=== PATIENT | female | born 1975 | race African-American/Black ===

== ENCOUNTER 2016-11-16 19:50 | Inpatient (IN) | payer OTHER ==
[2016-11-16 21:46] VITALS: BMI 37.5
--- NOTE | 2016-11-16 23:58 | HP ---
Admission ROS [facility] - [facility] Chief Complaint: I WANT TO GO TO REHAB Allergies/Adverse Reactions: Allergies Allergy/AdvReac Type Severity Reaction Status Date / Time No Known Allergies Allergy Verified 11/16/16 23:53 History of Present Illness: 41 YEARS OLD FEMALE WITH LONG HISTORY OF COCAINE NICOTINE DEPENDENCE ASHTM ECZEMA IS ADMITTED TO REHAB Exam Limitations: No Limitations - Ebola screening Have you traveled outside of the country in the last 21 days: No Have you had contact with anyone from an Ebola affected area: No Have you been sick,other than usual withdrawal symptoms: No Do you have a fever: No - Review of Systems Constitutional: Weight Stable EENT: reports: Dental Problems (A HOLE LEFT UPPER X 1 YEAR) Respiratory: reports: No Symptoms reported Cardiac: reports: No Symptoms Reported GI: reports: No Symptoms Reported : reports: No Symptoms Reported Musculoskeletal: reports: No Symptoms Reported Integumentary: reports: No Symptoms Reported Neuro: reports: No Symptoms reported Endocrine: reports: No Symptoms Reported Hematology: reports: No Symptoms Reported Psychiatric: reports: Judgement Intact, Mood/Affect Appropiate, Orientated x3 Other Systems: Reviewed and Negative Patient History - Patient Medical History Hx Anemia: No Hx Asthma: Yes Hx Chronic Obstructive Pulmonary Disease (COPD): No Hx Cancer: No Hx Cardiac Disorders: No Hx Congestive Heart Failure: No Hx Hypertension: No Hx Hypercholesterolemia: No Hx Pacemaker: No HX Cerebrovascular Accident: No Hx Seizures: No Hx Dementia: No Hx Diabetes: No Hx Gastrointestinal Disorders: No Hx Liver Disease: No Hx Genitourinary Disorders: No Hx Sexually Transmitted Disorders: No Hx Renal Disease (ESRD): No Hx Thyroid Disease: No Hx Human Immunodeficiency Virus (HIV): No Hx Hepatitis C: No Hx Depression: No Hx Suicide Attempt: No Hx Bipolar Disorder: No Hx Schizophrenia: No - Patient Surgical History Past Surgical History: Yes Hx Section: Yes (2017) Anesthesia Reaction: No - PPD History Previous Implant?: Yes Documented Results: Negative w/o proof Implanted On Prior R Admission?: No PPD to be Administered?: Yes - Reproductive History Patient is a Female of Child Bearing Age (11 -55 yrs old): Yes Last Menstrual Period: 11/13/16 Patient : No - Smoking Cessation Smoking history: Current every day smoker Have you smoked in the past 12 months: Yes Aproximately how many cigarettes per day: 7 Cigars Per Day: 0 Hx Chewing Tobacco Use: No Initiated information on smoking cessation: Yes 'Breaking Loose' booklet given: 11/16/16 - Substance & Tx. History Hx Alcohol Use: No Hx Substance Use: Yes Substance Use Type: Cocaine Hx Substance Use Treatment: Yes - Substances Abused Cocaine Route: Smoking Frequency: Daily Amount used: 100$ Age of first use: 15 Date of Last Use: 11/16/16 Family Disease History - Family Disease History Family Disease History: CA: Mother (LIVER), Brother (LUNG ) Admission Physical Exam [facility] - Vital Signs Vital Signs: Vital Signs - 24 hr 11/16/16 21:29 Temperature 98.3 F Pulse Rate 91 H Respiratory 20 Rate Blood Pressure 125/103 - Physical General Appearance: Yes: No Apparent Distress, Nourished, Appropriately Dressed HEENTM: Yes: Hearing grossly Normal, Normal ENT Inspection, Normocephalic, Normal Voice Respiratory: Yes: Chest Non-Tender, Lungs Clear, Normal Breath Sounds, No Respiratory Distress, No Accessory Muscle Use Neck: Yes: Supple, Trachea in good position Breast: Yes: Breasts Symetrical Cardiology: Yes: Regular Rhythm, S1, S2, Tachycardia Abdominal: Yes: Non Tender, Soft Genitourinary: Yes: Within Normal Limits Back: Yes: Normal Inspection Musculoskeletal: Yes: full range of Motion, Gait Steady Extremities: Yes: Normal Range of Motion, Non-Tender Neurological: Yes: Alert, Motor Strength 5/5, Normal Mood/Affect, Normal Response Integumentary: Yes: Warm Lymphatic: Yes: Within Normal Limits - Diagnostic (1) Cocaine dependence, uncomplicated Current Visit: Yes Status: Acute (2) Nicotine dependence Current Visit: Yes Status: Acute Qualifiers: Nicotine product type: cigarettes Substance use status: in withdrawal Qualified Code(s): F17.213 - Nicotine dependence, cigarettes, with withdrawal (3) Asthma Current Visit: Yes Status: Acute Qualifiers: Asthma severity: mild persistent Asthma complication type: with status asthmaticus Qualified Code(s): J45.32 - Mild persistent asthma with status asthmaticus (4) Eczema Current Visit: Yes Status: Acute Qualifiers: Eczema type: flexural Qualified Code(s): L20.82 - Flexural eczema Comment: HYDROCORTISON Cleared for Admission [facility] - Detox or Rehab [facility] Level of Care: Observation Bed Claeared for Rehab Admission: Yes BHS Breath Alcohol Content Breath Alcohol Content: 0 Urine Pregancy Test - Result Urine Test Results: Negative- NO Line Present Urine Drug Screen - Results Drug Screen Negative: No Urine Drug Screen Results: AMINA-Cocaine
[2016-11-16] MEDS ORDERED: guaiFENesin/D-METHORPHAN HB 10 ML UNIT-DOSE CUPS PO PRN (23:59)
[2016-11-16] MEDS ORDERED: MAG HYDROX/AL HYDROX/SIMETH 30 ML UNIT-DOSE CUP PO PRN (23:59)
[2016-11-16] MEDS ORDERED: MAGNESIUM CITRATE 300 ML BOTTLE PO PRN (23:59)
[2016-11-16] MEDS ORDERED: P-EPHED 60MG/TRIPROLIDI 2.5MG TABLET PO PRN (23:59)
[2016-11-16] MEDS ORDERED: IBUPROFEN 400 MG TABLET (FP) PO PRN (23:59)
[2016-11-16] MEDS ORDERED: MENTHOL/PHENOL 1 EACH UD MM PRN (23:59)
[2016-11-16] MEDS ORDERED: ACETAMINOPHEN 325 MG TABLET (FP) PO PRN (23:59)
[2016-11-16] MEDS ORDERED: MAGNESIUM HYDROX 2400MG/30ML ORAL SUSPENSION 30 ML CUP PO PRN (23:59)
[2016-11-16] MEDS ORDERED: hydrOXYzine PAMOATE 50 MG CAPSULE (FP) PO PRN (23:59)
[2016-11-17] MEDS ORDERED: HYDROCORTISONE 0.5% TOPICAL CREAM 30 GM TUBE TP PRN (00:02)
[2016-11-17] MEDS: ALBUTEROL SO4 6.7 GM HFA INHALER IH PRN (01:11)
[2016-11-17] MEDS: diphenhydrAMINE HCL 50 MG CAPSULE PO PRN (01:43)
[2016-11-17] MEDS: NICOTINE POLACRILEX 2 MG GUM BC PRN (10:16)
[2016-11-17] MEDS: NICOTINE 14 MG/24 HOURS TOPICAL PATCH TD SCH (10:16)
[2016-11-17] MEDS: PRENATAL VITAMINS W/ FOLIC ACID TABLET (FP) PO SCH (10:16)
[2016-11-17 10:40] LABS: MCH 26.7 pg (25.7-33.7); MCHC 31.9 g/dl (32.0-36.0); MEAN CELL VOLUME 83.5 fl (80-96); MEAN PLT VOLUME 8.3 fl (7.5-11.1); PLATELET COUNT 262 K/MM3 (134-434); RDW 15.2 % (11.6-15.6); WHITE BLOOD COUNT 5.7 K/mm3 (4.0-10.0)
[2016-11-17 10:54] LABS: ANION GAP 8 (8-16); CALCIUM 8.4 mg/dL (8.5-10.1); CO2 24 mmol/L (21-32); GLUCOSE,RANDOM 78 mg/dL (74-106)
[2016-11-17 10:56] LABS: CREATININE 0.9 mg/dL (0.55-1.02)
[2016-11-17 10:57] LABS: ALK PHOS 67 U/L (45-117); BILIRUBIN,TOTAL 0.4 mg/dL (0.2-1.0); SGOT/AST 13 U/L (15-37); SGPT/ALT 15 U/L (12-78); TOT PROT 6.2 g/dl (6.4-8.2)
[2016-11-17] MEDS: BUDESONIDE/FORMETEROL FUMARATE 80/4.5 mcg INHALER IH SCH ×2 (12:21→21:40)
[2016-11-17 13:38] LABS: URINE APPEARANCE SLCLOUDY; URINE BILIRUBIN NEGATIVE (NEGATIVE); URINE COLOR YELLOW; URINE GLUCOSE (UA) NEGATIVE (NEGATIVE); URINE KETONE NEGATIVE (NEGATIVE); URINE LEUK ESTERASE NEGATIVE (NEGATIVE); URINE NITRITE NEGATIVE (NEGATIVE); URINE PROTEIN NEGATIVE (NEGATIVE); URINE UROBILINOGEN NEGATIVE E.U./dl (0.2-1.0)
[2016-11-17 13:39] LABS: URINE BLOOD 3+ (NEGATIVE)
[2016-11-17 13:42] LABS: URINE MUCUS RARE; URINE RBC 190 /hpf (0-3); URINE WBC 1 /hpf (3-5)
[2016-11-17] MEDS: FLUTICASONE PROP 0.05% 16 GM NASAL SPRAY NS SCH (15:57)
--- NOTE | 2016-11-17 18:14 | EKG ---
Test Reason : Blood Pressure : / mmHG Vent. Rate : 072 BPM Atrial Rate : 072 BPM P-R Int : 164 ms QRS Dur : 068 ms QT Int : 378 ms P-R-T Axes : 039 013 017 degrees QTc Int : 413 ms NORMAL SINUS RHYTHM NORMAL ECG NO PREVIOUS ECGS AVAILABLE Confirmed by KM MORALES MD ([id number]) on 11/17/2016 6:14:18 PM Referred By: Confirmed By:KM MORALES MD
[2016-11-17] MEDS: THIAMINE HCL 100 MG TABLET (FP) PO SCH (21:40)
[2016-11-17] MEDS: LOPERAMIDE HCL 2 MG CAPSULE PO PRN (21:41)
[2016-11-18] MEDS: LOPERAMIDE HCL 2 MG CAPSULE PO PRN ×2 (06:44→21:12)
[2016-11-18] MEDS: ALBUTEROL SO4 6.7 GM HFA INHALER IH PRN (06:46)
[2016-11-18] MEDS ORDERED: PT OWN MED DRAWER 7, Y5N ONE ×3 (06:46→23:23)
[2016-11-18] MEDS: PRENATAL VITAMINS W/ FOLIC ACID TABLET (FP) PO SCH (10:01)
[2016-11-18] MEDS: FLUTICASONE PROP 0.05% 16 GM NASAL SPRAY NS SCH (10:01)
[2016-11-18] MEDS: BUDESONIDE/FORMETEROL FUMARATE 80/4.5 mcg INHALER IH SCH ×2 (10:01→21:13)
[2016-11-18] MEDS: NICOTINE 14 MG/24 HOURS TOPICAL PATCH TD SCH (10:02)
[2016-11-18] MEDS: NICOTINE POLACRILEX 2 MG GUM BC PRN (18:58)
[2016-11-18] MEDS: THIAMINE HCL 100 MG TABLET (FP) PO SCH (21:12)
[2016-11-18] MEDS: diphenhydrAMINE HCL 50 MG CAPSULE PO PRN (21:23)
[2016-11-19] MEDS: LOPERAMIDE HCL 2 MG CAPSULE PO PRN (06:17)
[2016-11-19] MEDS: PRENATAL VITAMINS W/ FOLIC ACID TABLET (FP) PO SCH (10:17)
[2016-11-19] MEDS: BUDESONIDE/FORMETEROL FUMARATE 80/4.5 mcg INHALER IH SCH ×2 (10:17→21:30)
[2016-11-19] MEDS: NICOTINE 14 MG/24 HOURS TOPICAL PATCH TD SCH (10:17)
[2016-11-19] MEDS: FLUTICASONE PROP 0.05% 16 GM NASAL SPRAY NS SCH (10:18)
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
[2016-11-19] MEDS: THIAMINE HCL 100 MG TABLET (FP) PO SCH (21:30)
[2016-11-19] MEDS: traZODone HCL 50 MG TABLET (FP) PO SCH (21:32)
[2016-11-19] MEDS ORDERED: LIDOCAINE VISCOUS 2% ORAL/TOP 20 ML UNIT-DOSE CUP MM PRN (21:45)
--- NOTE | 2016-11-19 21:45 | PN ---
S Progress Note Note: ASKED TO SEE PT FOR C/O TOOTH PAIN. PT STATES SHE HAS AN ABSCESS TO HER RUQ OF HER MOUTH/ GUMS. PAIN 10/10 X 3DAYS. DENIES FEVER, CHILL, SOB. FACE- SYMMETRICAL MOUTH- MMM, POOR DENTITION,RUQ- NO REDNESS OR SWELLING NOTED TO GUMS. C/O PAIN ON PALPATION A- DENTAL PAIN P- INCREASE MOTRIN TO 800MG PO Q6H PRN DENTAL CONSULT MOUTH CARE DISCUSSED LIDOCAINE VISCOUS ORDERED
[2016-11-19] MEDS: IBUPROFEN 400 MG TABLET (FP) PO PRN (22:46)
[2016-11-20] MEDS ORDERED: PT OWN MED DRAWER 7, Y5N ONE ×3 (08:39→20:17)
[2016-11-20] MEDS: LOPERAMIDE HCL 2 MG CAPSULE PO PRN (08:50)
[2016-11-20] MEDS: IBUPROFEN 400 MG TABLET (FP) PO PRN (08:51)
[2016-11-20] MEDS: BUDESONIDE/FORMETEROL FUMARATE 80/4.5 mcg INHALER IH SCH ×2 (10:04→21:36)
[2016-11-20] MEDS: FLUTICASONE PROP 0.05% 16 GM NASAL SPRAY NS SCH (10:04)
[2016-11-20] MEDS: NICOTINE 14 MG/24 HOURS TOPICAL PATCH TD SCH (10:05)
[2016-11-20] MEDS: PRENATAL VITAMINS W/ FOLIC ACID TABLET (FP) PO SCH (10:05)
[2016-11-20] MEDS ORDERED: LIDOCAINE VISCOUS 2% ORAL/TOP 20 ML UNIT-DOSE CUP MM PRN (14:09)
[2016-11-20] MEDS ORDERED: COLLOIDAL OATMEAL 1 BAR EACH TP PRN (14:09)
[2016-11-20] MEDS: AMOXICILLIN 500 MG CAPSULE (FP) PO SCH ×2 (14:41→21:36)
--- NOTE | 2016-11-20 15:36 | PN ---
[facility] Progress Note Note: PT. C/O SEVERE TOOTHACHE,SHE HAS A HOLE IN THE LAST UPPER MOLAR AND SWOLLEN GUM SURROUNDING TOOTH. Vital Signs - 8 hr 11/20/16 12:30 Temperature 97.7 F Pulse Rate 89 Respiratory 18 Rate Blood Pressure 130/86 Laboratory Tests 11/17/16 11/17/16 11/17/16 08:00 08:00 08:00 WBC 5.7 RBC 4.52 Hgb 12.1 Hct 37.8 MCV 83.5 MCHC 31.9 L RDW 15.2 Plt Count 262 MPV 8.3 Sodium 143 Potassium 4.1 Chloride 111 H Carbon Dioxide 24 Anion Gap 8 BUN 12 Creatinine 0.9 Creat Clearance w eGFR > 60 Random Glucose 78 Calcium 8.4 L Total Bilirubin 0.4 AST 13 L ALT 15 Alkaline Phosphatase 67 Total Protein 6.2 L Albumin 3.0 L Urine Color Urine Appearance Urine pH Ur Specific [place] Urine Protein Urine Glucose (UA) Urine Ketones Urine Blood Urine Nitrite Urine Bilirubin Urine Urobilinogen Ur Leukocyte Esterase Urine RBC Urine WBC Ur Epithelial Cells Urine Mucus RPR Titer Nonreactive 11/17/16 13:25 WBC RBC Hgb Hct MCV MCHC RDW Plt Count MPV Sodium Potassium Chloride Carbon Dioxide Anion Gap BUN Creatinine Creat Clearance w eGFR Random Glucose Calcium Total Bilirubin AST ALT Alkaline Phosphatase Total Protein Albumin Urine Color Yellow Urine Appearance Slcloudy Urine pH 5.0 Ur Specific [place] 1.019 Urine Protein Negative Urine Glucose (UA) Negative Urine Ketones Negative Urine Blood 3+ H Urine Nitrite Negative Urine Bilirubin Negative Urine Urobilinogen Negative Ur Leukocyte Esterase Negative Urine RBC 190 Urine WBC 1 Ur Epithelial Cells Few Urine Mucus Rare RPR Titer labs noted Dental abscess with Dental carries & decay Amoxicillin Dental F/U on
[2016-11-20] MEDS: FLUOCINONIDE 0.05% TOP OINT (60 GM TUBE) TP SCH ×2 (17:08→21:36)
[2016-11-20] MEDS: diphenhydrAMINE HCL 50 MG CAPSULE PO PRN (21:36)
[2016-11-20] MEDS: THIAMINE HCL 100 MG TABLET (FP) PO SCH (21:36)
[2016-11-20] MEDS: TOLNAFTATE 1% CREAM 15 GM TUBE TP SCH (21:37)
[2016-11-20] MEDS: traZODone HCL 50 MG TABLET (FP) PO SCH (21:37)
[2016-11-21] MEDS: AMOXICILLIN 500 MG CAPSULE (FP) PO SCH ×3 (06:25→21:33)
[2016-11-21] MEDS: NICOTINE 14 MG/24 HOURS TOPICAL PATCH TD SCH (10:35)
[2016-11-21] MEDS: PRENATAL VITAMINS W/ FOLIC ACID TABLET (FP) PO SCH (10:36)
[2016-11-21] MEDS: BUDESONIDE/FORMETEROL FUMARATE 80/4.5 mcg INHALER IH SCH ×2 (10:36→21:35)
[2016-11-21] MEDS: FLUOCINONIDE 0.05% TOP OINT (60 GM TUBE) TP SCH ×4 (10:36→21:37)
[2016-11-21] MEDS: TOLNAFTATE 1% CREAM 15 GM TUBE TP SCH ×2 (10:36→21:34)
[2016-11-21] MEDS ORDERED: PT OWN MED DRAWER 7, Y5N ONE ×3 (12:05→21:36)
[2016-11-21] MEDS: LOPERAMIDE HCL 2 MG CAPSULE PO PRN ×2 (15:03→21:37)
[2016-11-21] MEDS: diphenhydrAMINE HCL 50 MG CAPSULE PO PRN (21:33)
[2016-11-21] MEDS: THIAMINE HCL 100 MG TABLET (FP) PO SCH (21:33)
[2016-11-21] MEDS: traZODone HCL 50 MG TABLET (FP) PO SCH (21:33)
[2016-11-22] MEDS: AMOXICILLIN 500 MG CAPSULE (FP) PO SCH ×3 (06:39→21:40)
[2016-11-22] MEDS: BUDESONIDE/FORMETEROL FUMARATE 80/4.5 mcg INHALER IH SCH ×2 (09:04→21:41)
[2016-11-22] MEDS: PRENATAL VITAMINS W/ FOLIC ACID TABLET (FP) PO SCH (09:04)
[2016-11-22] MEDS: NICOTINE 14 MG/24 HOURS TOPICAL PATCH TD SCH (09:04)
[2016-11-22] MEDS: FLUOCINONIDE 0.05% TOP OINT (60 GM TUBE) TP SCH ×4 (09:05→21:42)
[2016-11-22] MEDS: TOLNAFTATE 1% CREAM 15 GM TUBE TP SCH ×2 (09:05→21:42)
--- NOTE | 2016-11-22 11:09 | PN ---
Psychiatric Progress Note Vital Signs: Vital Signs Period Temp Pulse Resp BP Sys/Espinal Pulse Ox Last 24 Hr 98.0 F 91 18-18 127/90 Date of Session: 11/22/16 Chief Complaint:: Psychiatrist Discharge Note HPI: Patient addressimg Cocaine Dependence comorbid with Nicotine Dependence and Substance-Induced Sleep Disorder ROS: Asthma, Eczema were medically managed Current Medications: Active Medications Generic Name Dose Route Start Last Admin Trade Name Freq PRN Reason Stop Dose Admin Acetaminophen 650 mg 11/16/16 23:59 11/20/16 14:02 Tylenol - PO 650 mg Q4H PRN Administration PAIN Al Hydroxide/Mg Hydroxide 30 ml 11/16/16 23:59 Mylanta Oral Suspension - PO Q6H PRN DYSPEPSIA Albuterol Sulfate 2 puff 11/17/16 00:03 11/18/16 06:46 Ventolin Hfa Inhaler - IH 2 inhaler Q4H PRN Administration SHORT OF BREATH/WHEEZING Amoxicillin 500 mg 11/20/16 14:15 11/22/16 06:39 Amoxicillin - PO 500 mg TID RICHARD Administration Budesonide/Formoterol Fumarate 2 puff 11/17/16 10:00 11/22/16 09:04 Symbicort 80/4.5mcg - IH 2 inh BID RICHARD Administration Colloidal Oatmeal 1 applic 11/20/16 14:09 11/20/16 14:43 Aveeno Soap - TP 1 bar DAILY PRN Administration HYGEINE Diphenhydramine HCl 50 mg 11/16/16 23:59 11/21/16 21:33 Benadryl - PO 50 mg HSMR1 PRN Administration INSOMNIA Eucalyptus/Menthol/Phenol/Sorbitol 1 each 11/16/16 23:59 Cepastat Lozenge - MM Q4H PRN SORE THROAT Fluocinonide 1 applic 11/20/16 18:00 11/22/16 09:05 Lidex 0.05% Ointment - TP Not Given QID RICHARD Guaifenesin 10 ml 11/16/16 23:59 Robitussin Dm - PO Q6H PRN COUGH Hydroxyzine Pamoate 50 mg 11/16/16 23:59 Vistaril - PO Q4H PRN AGITATION Ibuprofen 800 mg 11/19/16 21:31 11/20/16 08:51 Motrin - PO 800 mg Q6H PRN Administration SEVERE PAIN Lidocaine HCl 20 ml 11/20/16 14:09 Xylocaine 2% Viscous Oral - MM Q4HPO PRN ORAL PAIN/MOUTH SORES Loperamide HCl 4 mg 11/16/16 23:59 11/21/16 21:37 Imodium - PO 4 mg Q6H PRN Administration DIARRHEA Magnesium Citrate 300 ml 11/16/16 23:59 Citroma - PO Q48H PRN CONSTIPATION Magnesium Hydroxide 30 ml 11/16/16 23:59 Milk Of Magnesia - PO DAILY PRN CONSTIPATION Nicotine 14 mg 11/17/16 10:00 11/22/16 09:04 Nicoderm Patch - TD 14 mg DAILY RICHARD Administration Nicotine Polacrilex 2 mg 11/16/16 23:59 11/18/16 18:58 Nicorette Gum - BC 2 mg Q2H PRN Administration NICOTINE REPLACEMENT RX Multivit/Folic Acid/Iron 1 tab 11/17/16 10:00 11/22/16 09:04 Vitamins (Sjr) - PO 1 tab DAILY RICHARD Administration Pseudoephedrine/Triprolidine 1 combo 11/16/16 23:59 Actifed - PO TID PRN NASAL CONGESTION Thiamine HCl 100 mg 11/17/16 22:00 11/21/16 21:33 Vitamin B1 - PO 100 mg HS RICHARD Administration Tolnaftate 1 applic 11/20/16 22:00 11/22/16 09:05 Tinactin 1% Cream - TP Not Given BID RICHARD Trazodone HCl 50 mg 11/19/16 22:00 11/21/16 21:33 Desyrel - PO 50 mg HS RICHARD Administration Current Side Effect: No Lab tests ordered: Yes Lab tests reviewed: Yes Provider note:: Patient has competed this program early in order to address medical issues. She has partially met her treatment goals and will continue to address her issues in outpatient treatment at [facility]. She verbalized understanding of the negative consequences of her addiction and told policy writer sales that from her participation in relapse prevention group in this program, she has learned to identify her triggers as well as the importance of having a sober network in order to maintain abstinence. She responded well to Trazadone 50 mg po HS for insomnia. Script for 30 days sypply will be electronically transmitted to. She is stable for discharge on 11/23/16 Total face to face time:: 35 Mental Status Exam - Mental Status Exam Alert and Oriented to: Time, Place, Person Cognitive Function: Fair Patient Appearance: Well Groomed Mood: Hopeful, Euthymic Affect: Appropriate Patient Behavior: Cooperative Speech Pattern: Clear Voice Loudness: Normal Thought Process: Intact Thought Disorder: Not Present Hallucinations: Denies Suicidal Ideation: Denies Homicidal Ideation: Denies Insight/Judgement: Fair Sleep: Fair Appetite: Good Muscle strength/Tone: Normal Gait/Station: Normal Psychiatric Treatment Plan - Problem List (1) Cocaine dependence, uncomplicated Current Visit: Yes (2) Nicotine dependence Current Visit: Yes Qualifiers: Nicotine product type: cigarettes Substance use status: in withdrawal Qualified Code(s): F17.213 - Nicotine dependence, cigarettes, with withdrawal (3) Substance-induced sleep disorder Current Visit: Yes (4) Asthma Current Visit: Yes Qualifiers: Asthma severity: mild persistent Asthma complication type: with status asthmaticus Qualified Code(s): J45.32 - Mild persistent asthma with status asthmaticus (5) Eczema Current Visit: Yes Qualifiers: Eczema type: flexural Qualified Code(s): L20.82 - Flexural eczema Comment: HYDROCORTISON Initial treatment plan: Patient is discharged tomorrow and referred to [facility] for outpatient treatment
[2016-11-22] MEDS: IBUPROFEN 400 MG TABLET (FP) PO PRN (15:25)
[2016-11-22] MEDS ORDERED: PT OWN MED DRAWER 7, Y5N ONE (18:44)
[2016-11-22] MEDS: THIAMINE HCL 100 MG TABLET (FP) PO SCH (21:41)
[2016-11-22] MEDS: diphenhydrAMINE HCL 50 MG CAPSULE PO PRN (21:41)
[2016-11-22] MEDS: traZODone HCL 50 MG TABLET (FP) PO SCH (21:42)
[2016-11-23] MEDS: AMOXICILLIN 500 MG CAPSULE (FP) PO SCH (06:40)
[2016-11-23 07:36] VITALS: BP 135/86; PULSE 85; TEMP 97.9
[2016-11-23] MEDS ORDERED: PT OWN MED DRAWER 7, Y5N ONE (08:22)
[2016-11-23] MEDS: BUDESONIDE/FORMETEROL FUMARATE 80/4.5 mcg INHALER IH SCH (09:19)
[2016-11-23] MEDS: PRENATAL VITAMINS W/ FOLIC ACID TABLET (FP) PO SCH (09:19)
[2016-11-23] MEDS: NICOTINE 14 MG/24 HOURS TOPICAL PATCH TD SCH (09:20)
[2016-11-23] MEDS: FLUOCINONIDE 0.05% TOP OINT (60 GM TUBE) TP SCH (09:20)
[2016-11-23] MEDS: TOLNAFTATE 1% CREAM 15 GM TUBE TP SCH (09:20)
== END 2016-11-23 09:40 | disposition home or self-care (01) | DRG 772 ==
LOC: YASAS 19:50 → Y3E 21:50
PROVIDERS: ADMIT Psychiatry & Neurology Psychiatry; ATTEND Psychiatry & Neurology Psychiatry
PROC: HZ42ZZZ Group Counseling for Substance Abuse Treatment, Cognitive-Behavioral (ICD-10-PCS; principal; 2016-11-23)
DX: F14.20 Cocaine dependence, uncomplicated (principal); F17.213 Nicotine dependence, cigarettes, with withdrawal; F19.282 Other psychoactive substance dependence with psychoactive substance-induced sleep disorder; J45.32 Mild persistent asthma with status asthmaticus; L20.82 Flexural eczema
CPT/HCPCS: 36415; 80053; 81003; 81015; 85027; 86593; 93005; 93010